=== PATIENT | female | born 1990 | race Caucasian/White ===

== ENCOUNTER 2018-04-13 05:08 | Inpatient (IN) | payer OTHER ==
[~2018-04-13] VITALS: Ht 154.9 cm; Wt 62.3 kg
[~2018-04-13 05:08] MED LIST: DIPH25CA61 PO; IBUP200T49 PO; OXYC-302 PO; PREN1TAB56 PO
[2018-04-13] MEDS ORDERED: OXYTOCIN 30U/ 0.9% NaCL 500ML 500 ML IV ONE (05:16)
[2018-04-13] MEDS ORDERED: LACTATED RINGERS 1,000 ML IV SCH (05:16)
[2018-04-13] MEDS ORDERED: D5%-LACTATED RINGERS 1,000 ML IV SCH (05:16)
[2018-04-13] MEDS ORDERED: NEWBORN KIT ONE (05:18)
[2018-04-13] MEDS ORDERED: MISOPROSTOL 200 MCG TABLET ONE (05:18)
[2018-04-13] MEDS ORDERED: LIDOCAINE 1%, 20ML ONE (05:18)
[2018-04-13] MEDS ORDERED: OXYTOCIN 30U/ 0.9% NaCL 500ML 500 ML ONE ×2 (05:19→07:13)
[2018-04-13] MEDS ORDERED: FENTANYL PF 100 MCG/2ML ONE (05:25)
[2018-04-13] MEDS ORDERED: CALCIUM CARBONATE 500 MG TAB.CHEW PO PRN (05:30)
[2018-04-13] MEDS ORDERED: FENTANYL PF 100 MCG/2ML IVPush PRN (05:30)
[2018-04-13] MEDS ORDERED: TERBUTALINE 1 MG/ML, 1ML IVPush PRN (05:30)
[2018-04-13] MEDS ORDERED: FENTANYL PF 100 MCG/2ML IV PRN (05:30)
[2018-04-13] MEDS ORDERED: ONDANSETRON 2MG/ML, 2ML IVPush PRN (05:30)
[2018-04-13 05:36] VITALS: BP 148/92
[2018-04-13] MEDS ORDERED: ROPIvacaine/PF 0.2% , 100 ML ONE (05:36)
[2018-04-13] MEDS ORDERED: FENTANYL/BUPIV./NS/PF 250 ML EPIDCONT SCH (05:38)
[2018-04-13 05:40] VITALS: BP 148/92
[2018-04-13 05:46] LABS: BASOPHILS # (AUTO) 0.06 x10^3/uL (0-0.1); BASOPHILS % (AUTO) 1 % (0-1); EOSINOPHILS # (AUTO) 0.12 x10^3/uL (0-0.4); EOSINOPHILS % (AUTO) 1 % (1-7); LYMPHOCYTES # (AUTO) 2.54 x10^3/uL (1-3.4); LYMPHOCYTES % (AUTO) 27 % (22-44); MD NO; MEAN CORPUSCULAR HEMOGLOBIN 25.4 pg (27.0-34.8); MEAN CORPUSCULAR HGB CONC 32.8 g/dL (32.4-35.8); MEAN CORPUSCULAR VOLUME 77.5 fL (80-100); MONOCYTES # (AUTO) 0.82 x10^3/uL (0.2-0.8); MONOCYTES % (AUTO) 9 % (2-9); NEUTROPHILS # (AUTO) 5.95 x10^3/uL (1.8-6.8); NEUTROPHILS % (AUTO) 63 % (42-75); PLATELET COUNT 217 x10^3/uL (130-400); RED BLOOD COUNT 4.98 x10^6/uL (3.82-5.3)
[2018-04-13] MEDS ORDERED: FENTANYL PF 500 MCG, BUPIVACAINE/PF 0.5%, 30ML 62.5 ML in SODIUM CHLORIDE 0.9% 177.5 ML EPIDCONT SCH (06:00)
[2018-04-13 06:52] LABS: ALANINE AMINOTRANSFERASE 24 U/L (12-78); ALBUMIN 2.4 g/dL (3.4-5.0); ANION GAP 8 mmol/L (5-15); CALCIUM 7.9 mg/dL (8.5-10.1); CHLORIDE 111 mmol/L (98-107); CREATININE 0.54 mg/dL (0.55-1.02)
[2018-04-13 06:54] LABS: ALKALINE PHOSPHATASE 119 U/L (45-117); BILIRUBIN,TOTAL 0.2 mg/dL (0.2-1.0); TOTAL PROTEIN 6.1 g/dL (6.4-8.2)
[2018-04-13 06:56] LABS: BILIRUBIN, DIRECT < 0.1 mg/dL (0.1-0.2)
[2018-04-13] MEDS ORDERED: IBUPROFEN 600 MG TABLET ONE (07:01)
[2018-04-13] MEDS: OXYTOCIN 30U/ 0.9% NaCL 500ML 500 ML IV SCH ×2 (07:17→17:14)
[2018-04-13] MEDS ORDERED: IBUPROFEN 200 MG TABLET PO PRN (07:30)
[2018-04-13] MEDS ORDERED: ONDANSETRON 2MG/ML, 2ML IV PRN (07:30)
[2018-04-13] MEDS ORDERED: MISOPROSTOL 200 MCG TABLET PO PRN (07:30)
[2018-04-13] MEDS ORDERED: OXYcodone/APAP 5/325MG TABLET PO PRN ×2 (07:30)
[2018-04-13] MEDS ORDERED: DOCUSATE 100 MG CAPSULE PO PRN (07:30)
[2018-04-13 08:35] LABS: MICROSCOPIC AUTO
[2018-04-13 08:52] LABS: CREATININE,URINE RANDOM 42.7 mg/dL
[2018-04-13] MEDS: PRENATAL VIT/IRON/FA 1 EACH TABLET PO SCH (09:00)
[2018-04-13 09:50] VITALS: BP 132/91
[2018-04-13 13:30] VITALS: BP 135/96
[2018-04-13] MEDS: IBUPROFEN 600 MG TABLET PO PRN ×2 (16:27→22:22)
[2018-04-13 16:30] VITALS: BP 139/94
[2018-04-13 20:10] VITALS: BP 128/88
[2018-04-14 00:20] VITALS: BP 128/87
[2018-04-14] MEDS: OXYTOCIN 30U/ 0.9% NaCL 500ML 500 ML IV SCH (03:14)
[2018-04-14 04:15] VITALS: BP 130/86
[2018-04-14] MEDS: IBUPROFEN 600 MG TABLET PO PRN (04:17)
[2018-04-14 05:56] LABS: BASOPHILS # (AUTO) 0.05 x10^3/uL (0-0.1); BASOPHILS % (AUTO) 0 % (0-1); EOSINOPHILS # (AUTO) 0.16 x10^3/uL (0-0.4); EOSINOPHILS % (AUTO) 1 % (1-7); LYMPHOCYTES # (AUTO) 3.15 x10^3/uL (1-3.4); LYMPHOCYTES % (AUTO) 26 % (22-44); MD NO; MEAN CORPUSCULAR HEMOGLOBIN 25.9 pg (27.0-34.8); MEAN CORPUSCULAR HGB CONC 33.1 g/dL (32.4-35.8); MEAN CORPUSCULAR VOLUME 78.2 fL (80-100); MEAN PLATELET VOLUME 10.2 fL (7.4-10.4); MONOCYTES # (AUTO) 1.18 x10^3/uL (0.2-0.8); MONOCYTES % (AUTO) 10 % (2-9); NEUTROPHILS % (AUTO) 63 % (42-75); PLATELET COUNT 228 x10^3/uL (130-400); RED BLOOD COUNT 4.77 x10^6/uL (3.82-5.3); RED CELL DISTRIBUTION WIDTH 14.6 % (9.6-15.2)
[2018-04-14 06:01] LABS: ALBUMIN 2.3 g/dL (3.4-5.0); CALCIUM 7.9 mg/dL (8.5-10.1); CHLORIDE 110 mmol/L (98-107)
[2018-04-14 06:06] LABS: ALANINE AMINOTRANSFERASE 30 U/L (12-78); ALKALINE PHOSPHATASE 124 U/L (45-117); ANION GAP 5 mmol/L (5-15); BILIRUBIN,TOTAL 0.1 mg/dL (0.2-1.0); CREATININE 0.47 mg/dL (0.55-1.02); TOTAL PROTEIN 6.1 g/dL (6.4-8.2)
[2018-04-14 08:51] VITALS: BP 142/99
[2018-04-14] MEDS: PRENATAL VIT/IRON/FA 1 EACH TABLET PO SCH (08:52)
[2018-04-14] MEDS ORDERED: IBUP-1222 PO (10:16)
== END 2018-04-14 17:43 | disposition home or self-care (01) | DRG 807 ==
LOC: LDOP 05:08 → LDIP 05:18 → 2NW 09:45
PROVIDERS: ADMIT Obstetrics & Gynecology; ATTEND Obstetrics & Gynecology
PROC: 10E0XZZ Delivery of Products of Conception, External Approach (ICD-10-PCS; principal; 2018-04-13)
PROC: 3E0R3BZ Introduction of Anesthetic Agent into Spinal Canal, Percutaneous Approach (ICD-10-PCS; 2018-04-13)
PROC: 00HU33Z Insertion of Infusion Device into Spinal Canal, Percutaneous Approach (ICD-10-PCS; 2018-04-13)
DX: O24.420 Gestational diabetes mellitus in childbirth, diet controlled (principal); Z37.0 Single live birth; O76 Abnormality in fetal heart rate and rhythm complicating labor and delivery; Z91.013 Allergy to seafood; Z3A.39 39 weeks gestation of pregnancy; O71.82 Other specified trauma to perineum and vulva
CPT/HCPCS: 36415; 80053; 81001; 82248; 82570; 84156; 84550; 85025; 86850; 86900; G0378; J3010; J3490; J2590; J7050; J7120